=== PATIENT | female | born 1995 | race Caucasian/White ===

== ENCOUNTER → 2017-10-24 16:29 | Outpatient (CLI) | payer MEDICAID, SELFPAY ==
[2017-10-24 21:11] LABS: Chlamydia Trachomatis by PCR Negative (Negative); Neisserai gonorrhoeae by PCR Negative (Negative); Probe Check PASS; Sample Adequacy Control PASS; Specimen Processing Control PASS
== END ==
PROVIDERS: Visit Provider Obstetrics & Gynecology
DX: Z12.4 Encounter for screening for malignant neoplasm of cervix (principal); Z11.3 Encounter for screening for infections with a predominantly sexual mode of transmission; Z34.81 Encounter for supervision of other normal pregnancy, first trimester
CPT/HCPCS: 87491; 87591; 88175; G0145

== ENCOUNTER → 2017-12-05 10:47 | Outpatient (CLI) | payer MEDICAID, SELFPAY ==
[2017-12-05 13:47] LABS: Absolute Lymphocyte Count 1.69 X10^3/ul (0.83-4.51); Absolute Neutrophil Count 5.6 X10^3/uL (2.0-7.7); Basophil# 0.01 X10^3/uL; Basophil% 0.1 % (0-1); Eosinophil# 0.02 X10^3/uL; Eosinophils% 0.3 % (0-5); Lymphocyte # 1.69 X10^3/ul (4.0); Lymphocyte % 22.2 % (19-41); Mean Corp Hgb Conc 33.3 g/gl (32-36); Mean Corpuscular Hgb 29.2 pg (27.0-32.0); Mean Corpuscular Volume 87.6 fL (81-99); Mean Platelet Vol. 10.2 fl (6.2-12.0); Monocyte# 0.28 X10^3/uL; Monocyte% 3.7 % (0-10); Neutrophil # 5.59 X10^3/uL (2.7-7.7); Neutrophil % 73.6 % (47-70); Platelet Count 257 K/mm3 (150-450); RBC Distribution Width CV 12.6 % (11.6-14.6); RBC Distribution Width SD 40.8 fl (35.1-43.9); Red Blood Count 4.11 M/mm3 (4.2-5.4); White Blood Count 7.6 K/mm3 (4.4-11.0)
[2017-12-05 13:48] LABS: POSITIVE COUNT NO; POSITIVE DIFFERENTIAL NO; POSITIVE MORPHOLOGY NO
[2017-12-05 13:54] LABS: Color, Urine Yellow (Yellow); Glucose, Dipstick Normal (Normal); Ketone-Dipstick Negative (Negative); Leukocyte Esterase-Dipstick 100 /ul (Negative); Nitrite-Dipstick Negative (Negative); Occult Blood-Urine 50 /ul (Negative); Protein-Dipstick Negative (Negative); Urine Bilirubin Dipstick Negative (Negative); Urine Clarity Clear (Clear); Urine Urobilinogen Normal (Normal)
[2017-12-05 14:09] LABS: Amphetamine Urine VISTA NEGATIVE (<1000 ng/mL); Barbiturate Urine VISTA NEGATIVE (< 200 ng/mL); Benzodiazepine Urine VISTA NEGATIVE (< 200 ng/mL); Cocaine Urine VISTA NEGATIVE (< 300 ng/mL); Ecstacy Urine VISTA NEGATIVE (< 500 ng/mL); Methadone Urine VISTA NEGATIVE (< 300 ng/mL); PCP Urine VISTA NEGATIVE (< 25 ng/mL); THC Urine VISTA NEGATIVE (< 50 ng/mL); Vista UDS pH Range 5
[2017-12-05 14:15] LABS: Thyroid Stim Hormone (TSH) 1.06 uIU/mL (0.358-3.74)
[2017-12-05 14:54] LABS: HIV - WCH Non-Reactive (Nonreactive)
[2017-12-07 13:51] LABS: HEPATITIS B SURFACE AG Negative (Negative); Hep C Antibodies <0.1 s/co ratio (0.0-0.9); V-Zoster IgG (Immunity) 242 index (Immune >165)
[2017-12-12 05:42] LABS: Prenatal RPR NONREACTIVE (NONREACTIVE)
== END ==
PROVIDERS: Visit Provider Obstetrics & Gynecology
DX: Z34.81 Encounter for supervision of other normal pregnancy, first trimester (principal)
CPT/HCPCS: 36415; 80307; 81002; 84443; 85025; 86703; 86762; 86787; 86803; 87340

== ENCOUNTER 2018-03-15 20:25 | Outpatient (CLI) | payer MEDICAID, SELFPAY ==
[2018-03-15 21:04] VITALS: BMI 38.6
--- NOTE | 2018-03-16 07:29 | OB.TRI.NOTE ---
History of Present Illness Date of Service: 03/15/18 Was patient seen by the physician?: No Reason For Visit: lower abdominal pain at 26 weeks Date of Service: 03/15/18 Final SHAHAB: 06/21/18 Final SHAHAB Source: US <20 weeks Gestational age: 26 Weeks and 1 Days History of Present Illness: C/O lower abdominal pain. Good movement at home. No signs fo SROM no bleeding Allergies No Known Allergies Allergy (Verified 02/15/17 05:05) Physical Exam General: Alert, Oriented x3, Cooperative, No apparent distress Lungs: Clear to auscultation, Normal air movement Abdomen: Soft, Non Tender, Non-Distended, Gravid, Appropriate for Gestational Age Extremities:: No edema Neurological: Neuro grossly intact DIRECTOR REPORT: Normal external genitalia Estimated gestational size: Appropriate for gestational size NST - FHR Rate Baby A Baseline: 140s Variability:: Moderate Accelerations:: 15 x 15 Decelerations:: None NST Reactive:: Yes, Appropriate for gestational age FHR Category:: Category I Uterine Activity:: none Impression/Plan No signs of labor or PPROM. Reassuring heart rate pattern. Reassured and discharged home. Followup in office.
--- NOTE | 2018-03-16 07:32 | OB.TRI.HP_ITS ---
History of Present Illness Date of Service: 03/15/18 Was patient seen by the physician?: No Reason For Visit: lower abdominal pain at 26 weeks Date of Service: 03/15/18 Final SHAHAB: 06/21/18 Final SHAHAB Source: US <20 weeks Gestational age: 26 Weeks and 1 Days History of Present Illness: C/O lower abdominal pain. Good movement at home. No signs fo SROM no bleeding Allergies No Known Allergies Allergy (Verified 02/15/17 05:05) Physical Exam General: Alert, Oriented x3, Cooperative, No apparent distress Lungs: Clear to auscultation, Normal air movement Abdomen: Soft, Non Tender, Non-Distended, Gravid, Appropriate for Gestational Age Extremities:: No edema Neurological: Neuro grossly intact NET MAKER: Normal external genitalia Estimated gestational size: Appropriate for gestational size NST - FHR Rate Baby A Baseline: 140s Variability:: Moderate Accelerations:: 15 x 15 Decelerations:: None NST Reactive:: Yes, Appropriate for gestational age FHR Category:: Category I Uterine Activity:: none Impression/Plan No signs of labor or PPROM. Reassuring heart rate pattern. Reassured and discharged home. Followup in office.
== END 2018-03-15 21:55 | disposition home or self-care (01) ==
LOC: WPOUT 20:37 → WP 20:38
PROVIDERS: Referring Provider Obstetrics & Gynecology; Visit Provider Obstetrics & Gynecology
DX: O26.892 Other specified pregnancy related conditions, second trimester (principal); R10.30 Lower abdominal pain, unspecified; Z3A.26 26 weeks gestation of pregnancy
CPT/HCPCS: 59025; 59050; 99218; G0378

== ENCOUNTER → 2018-03-26 16:31 | Outpatient (CLI) | payer MEDICAID, SELFPAY ==
[2018-03-15 21:04] VITALS: BMI 38.6
[2018-03-26 17:41] LABS: Hematocrit 34.9 % (37-47); Hemoglobin 11.8 g/dl (12.0-15.0); Mean Corp Hgb Conc 33.8 g/gl (32-36); Mean Corpuscular Hgb 30.5 pg (27.0-32.0); Mean Corpuscular Volume 90.2 fL (81-99); Mean Platelet Vol. 10.6 fl (6.2-12.0); Platelet Count 264 K/mm3 (150-450); RBC Distribution Width CV 13.3 % (11.6-14.6); RBC Distribution Width SD 43.1 fl (35.1-43.9); Red Blood Count 3.87 M/mm3 (4.2-5.4); White Blood Count 8.9 K/mm3 (4.4-11.0)
[2018-03-26 17:44] LABS: Scan Indicated on CBC? Y/N NO
[2018-03-26 18:00] LABS: Glucose Challenge Gest 1H 50g 114 mg/dL (70-140)
== END ==
PROVIDERS: Visit Provider Obstetrics & Gynecology
DX: Z34.82 Encounter for supervision of other normal pregnancy, second trimester (principal)
CPT/HCPCS: 36415; 82950; 85027

== ENCOUNTER → 2018-05-25 16:45 | Outpatient (CLI) | payer MEDICAID, SELFPAY | PROVIDERS: Visit Provider Obstetrics & Gynecology | DX: Z36.85 Encounter for antenatal screening for Streptococcus B (principal) | CPT/HCPCS: 87081 ==

== ENCOUNTER 2018-06-12 05:23 | Inpatient (IN) | payer MEDICAID, SELFPAY ==
[2018-06-12 05:56] VITALS: BMI 39.8
[2018-06-12] MEDS: 0.9% Saline Lock 10 ML Syringe IV ×4 (06:05→15:36)
[2018-06-12] MEDS: Lactated Ringers 1,000 ML 50 ML IV (06:48)
[2018-06-12 06:53] LABS: Absolute Lymphocyte Count 2.02 X10^3/ul (0.83-4.51); Absolute Neutrophil Count 7.2 X10^3/uL (2.0-7.7); Basophil# 0.01 X10^3/uL; Basophil% 0.1 % (0-1); Eosinophil# 0.04 X10^3/uL; Eosinophils% 0.4 % (0-5); Hematocrit 35.7 % (37-47); Hemoglobin 11.8 g/dl (12.0-15.0); Lymphocyte # 2.02 X10^3/ul (4.0); Lymphocyte % 20.8 % (19-41); Mean Corp Hgb Conc 33.1 g/gl (32-36); Mean Corpuscular Hgb 29.7 pg (27.0-32.0); Mean Corpuscular Volume 89.9 fL (81-99); Mean Platelet Vol. 10.5 fl (6.2-12.0); Monocyte# 0.41 X10^3/uL; Monocyte% 4.2 % (0-10); Neutrophil # 7.19 X10^3/uL (2.7-7.7); Platelet Count 247 K/mm3 (150-450); RBC Distribution Width CV 13.2 % (11.6-14.6); RBC Distribution Width SD 43.1 fl (35.1-43.9); Red Blood Count 3.97 M/mm3 (4.2-5.4); White Blood Count 9.7 K/mm3 (4.4-11.0)
[2018-06-12 06:55] LABS: POSITIVE COUNT NO; POSITIVE DIFFERENTIAL NO; POSITIVE MORPHOLOGY NO
--- NOTE | 2018-06-12 08:34 | PCM.PN.BLA ---
Progress Note LABOR PROGRESS NOTE discussion Pt in room bouncing on ball and NAD. SROM at 0240 this am clear fluid and states still leaking some. intermittent monitoring and IV to S/L per her plan for NO intervention. States 16 hr labor with her first (not 7 hr as on chart) ... came in at 6 pm, delivered 10 am next day. AVSS EFM intermittent monitoring but category I tracing with intermittent UCs UC on monitor q 6-8 min + Pt now states q 12 + min and not as strong A/P 38 5/7 wk SROM. Inadequate labor. Advised pt that Pitocin is needed as 6+ hr already with no further change, inc in UCs. REFUSES Pitocin at present. States will reconsider in about another hour. Continue observation for now
--- NOTE | 2018-06-12 12:24 | PN_ITS ---
Subjective: Appears comfortable except during contractions. Objective: Afeb VSS intermittent FHR monitoring with normal heart beat - Physical Exam General: Alert, Oriented x3, Cooperative, No apparent distress Abdomen: Soft, Non Tender, Non-Distended, Gravid, Appropriate for Gestational Age Extremities: No edema Neurological: Neuro grossly intact Psych/Mental Status: Normal Affect Comment: CE 5cm 50% Weight: 234 lb Body Mass Index (BMI) 39.8 Intake and Output for Last 24 Hours 06/10/18 06/11/18 06/12/18 23:59 23:59 23:59 Intake Total 1280 / 1280 Output Total 625 / 625 Balance 655 / 655 Laboratory Tests Past 24 Hrs 06/12/18 06/12/18 06:05 06:05 WBC 9.7 RBC 3.97 L Hgb 11.8 L Hct 35.7 L MCV 89.9 MCH 29.7 MCHC 33.1 RDW 13.2 RDW Differential 43.1 Plt Count 247 MPV 10.5 Immature Gran % (Auto) 0.500 Neut % (Auto) 74.0 H Lymph % (Auto) 20.8 [place] % (Auto) 4.2 Eos % (Auto) 0.4 Baso % (Auto) 0.1 Absolute Neuts (auto) 7.2 Absolute Lymphs (auto) 2.02 Total Counted Not Reportable Blood Type AB POSITIVE Antibody Screen NEGATIVE Medical Necessity - Tobacco Use Smoking Status: Light Smoker (<10/day) Assessment/Plan All Active Problems 41 weeks gestation of (Acute) (spontaneous vaginal delivery) (Acute) No change in cervical exam over the last 4 hours. Contractions not frequent enough to affect cervical change. Recommended pitocin augmentation. She will consider.
--- NOTE | 2018-06-12 15:36 | PN_ITS ---
Subjective: Feeling some contractions but not overly uncomfortable Objective: Afeb VSS FHR tracing CAT 1 - Physical Exam Comment: CE 5/80/-3 Weight: 234 lb Body Mass Index (BMI) 39.8 Intake and Output for Last 24 Hours 06/10/18 06/11/18 06/12/18 23:59 23:59 23:59 Intake Total 1540 / 1540 Output Total 1125 / 1125 Balance 415 / 415 Laboratory Tests Past 24 Hrs 06/12/18 06/12/18 06:05 06:05 WBC 9.7 RBC 3.97 L Hgb 11.8 L Hct 35.7 L MCV 89.9 MCH 29.7 MCHC 33.1 RDW 13.2 RDW Differential 43.1 Plt Count 247 MPV 10.5 Immature Gran % (Auto) 0.500 Neut % (Auto) 74.0 H Lymph % (Auto) 20.8 [place] % (Auto) 4.2 Eos % (Auto) 0.4 Baso % (Auto) 0.1 Absolute Neuts (auto) 7.2 Absolute Lymphs (auto) 2.02 Total Counted Not Reportable Blood Type AB POSITIVE Antibody Screen NEGATIVE Medical Necessity - Tobacco Use Smoking Status: Light Smoker (<10/day) Assessment/Plan All Active Problems 41 weeks gestation of (Acute) (spontaneous vaginal delivery) (Acute) No significant change in cervix over last 6 hours. I recommend pitocin augmentation of labor. Reassuring heart rate pattern.
[2018-06-12] MEDS: Oxytocin 30 units/NS 500 ml 30 UNITS/500 ML IV.SOLN IV (15:40)
[2018-06-12] MEDS: Acetaminophen 325 MG Tablet PO (19:44)
--- NOTE | 2018-06-12 19:44 | PCM.PN.OB ---
Subjective: Feeling contractions strongly. Objective: Afeb VSS FHR tracing CAT 1 - Physical Exam Comment: CE /-1 Weight: 234 lb Body Mass Index (BMI) 39.8 Intake and Output for Last 24 Hours 06/10/18 06/11/18 06/12/18 23:59 23:59 23:59 Intake Total 1840 / 1840 Output Total 1475 / 1475 Balance 365 / 365 Laboratory Tests Past 24 Hrs 06/12/18 06/12/18 06:05 06:05 WBC 9.7 RBC 3.97 L Hgb 11.8 L Hct 35.7 L MCV 89.9 MCH 29.7 MCHC 33.1 RDW 13.2 RDW Differential 43.1 Plt Count 247 MPV 10.5 Immature Gran % (Auto) 0.500 Neut % (Auto) 74.0 H Lymph % (Auto) 20.8 [place] % (Auto) 4.2 Eos % (Auto) 0.4 Baso % (Auto) 0.1 Absolute Neuts (auto) 7.2 Absolute Lymphs (auto) 2.02 Total Counted Not Reportable Blood Type AB POSITIVE Antibody Screen NEGATIVE Medical Necessity - Tobacco Use Smoking Status: Light Smoker (<10/day) Assessment/Plan All Active Problems 41 weeks gestation of (Acute) (spontaneous vaginal delivery) (Acute) Progressing in labor expect to start pushing efforts soon.
--- NOTE | 2018-06-12 19:47 | PCM.DCVAG ---
Discharge Diet: No Restrictions Discharge Activity: Return to Normal Activity Additional Instructions: If you experience any of the following, contact your healthcare provider. Bleeding that soaks a pad every hour for 2 hours Fever 100.4 or higher Unrelieved incision or abdominal pain Swelling, redness, discharge or bleeding from your incision or episiotomy site Your incision begins to separate Problems urinating (including inability to urinate or burning while urinating). Visual changes Severe headache Flu-like symptoms Pain or redness in one of both of your breasts Pain, warmth, tenderness or swelling in your legs, especially the calf area Frequent nausea and vomiting Symptoms of depression or anxiety If you experience any of the following, call 911 or go to the nearest Emergency Room. Chest pain Problems breathing Seizure activity Partial or complete paralysis of a body part, slurred speech, weakness or drooping of the face, or a sudden inability to walk or hold your balance Allergies/Adverse Reactions: Allergies No Known Allergies Allergy (Verified 02/15/17 05:05) Medications to take at Discharge Vits [Prenatabs FA ] 1 tablet PO DAILY 02/13/17 Ibuprofen 600 mg PO 4X/DAY #30 tab 06/12/18 The following prescriptions were given: Ibuprofen 600 mg PO 4X/DAY #30 tab Primary Care Physician: Care Physician,No Primary [Primary Care Provider] - Test Results: Test results from this visit will be discussed in further detail at your follow-up appointment, if applicable.
[2018-06-12] MEDS: Oxytocin 30 units/NS 500 ml 30 UNITS/500 ML IV.SOLN 334 UNITS IV (19:57)
--- NOTE | 2018-06-12 20:03 | DCINST_ITS ---
Discharge Diet: No Restrictions Discharge Activity: Return to Normal Activity Additional Instructions: If you experience any of the following, contact your healthcare provider. * Bleeding that soaks a pad every hour for 2 hours * Fever 100.4 or higher * Unrelieved incision or abdominal pain * Swelling, redness, discharge or bleeding from your incision or episiotomy site * Your incision begins to separate * Problems urinating (including inability to urinate or burning while urinating). * Visual changes * Severe headache * Flu-like symptoms * Pain or redness in one of both of your breasts * Pain, warmth, tenderness or swelling in your legs, especially the calf area * Frequent nausea and vomiting * Symptoms of depression or anxiety If you experience any of the following, call 911 or go to the nearest Emergency Room. * Chest pain * Problems breathing * Seizure activity * Partial or complete paralysis of a body part, slurred speech, weakness or drooping of the face, or a sudden inability to walk or hold your balance Allergies/Adverse Reactions: Allergies No Known Allergies Allergy (Verified 02/15/17 05:05) Medications to take at Discharge Vits [Prenatabs FA ] 1 tablet PO DAILY 02/13/17 Ibuprofen 600 mg PO 4X/DAY #30 tab 06/12/18 The following prescriptions were given: Ibuprofen 600 mg PO 4X/DAY #30 tab Primary Care Physician: Care Physician,No Primary [Primary Care Provider] - Test Results: Test results from this visit will be discussed in further detail at your follow- up appointment, if applicable.
--- NOTE | 2018-06-12 20:04 | PCM.OPRPT ---
Vaginal Delivery Maternal Presentation: Spontaneous Rupture of Membranes 38w5d ega with SROM. Method of Induction: Pitocin Amniotic Membrane Rupture Type: Spontaneous at home Rupture of Membrane time: 0200 Amniotic Fluid Description: Clear Final SHAHAB: 06/21/18 Final SHAHAB Source: US <20 weeks Gestational age: 38 Weeks and 5 Days Date of Procedure: 06/12/18 Pre-Operative Diagnosis: labor Post-Operative Diagnosis: same Surgery/ Procedure Performed: Spontaneous Vaginal Delivery Type of Anesthesia: None Description of Procedure: Pitocin augmentation of labor was started at about 4pm. She then progressed over 4 hour to FD then pushed over one contraction to deliver a live male without complication. There was a loose nuchal cord x 2 which was reduced at delivery. After delivery the mouth and nose were suctioned with a bulb suction. Delayed cord clamping was employed. The cord was then clamped and cut. The placenta delivered spontenously intact. The uterus contracted well. Inspection revealed an intact vagina and perineum. Presentation: Vertex Placental Delivery Description: Spontaneous Placenta Disposition: [facility] Percentage of Placenta Abruption: 0 Cord Vessel Description: 3 Vessels Nuchal Cord Compression: Without compression Cord Entanglement: Around neck x 2, loose Estimated Blood Loss: 200cc Infant A gender: Male (1 minute): 8 (5 minute): 9 Episiotomy Description: None Laceration: None Medications given after delivery: IV Pitocin Complications: None
[2018-06-12] MEDS: Oxytocin 30 units/NS 500 ml 30 UNITS/500 ML IV.SOLN 167 UNITS IV (20:27)
[2018-06-13] VITALS: BP 108/62; PULSE 79; RESP 18; TEMP 36.7; O2SAT 98
[2018-06-13] MEDS: Senna/Docusate Sodium 1 Tablet PO (04:14)
[2018-06-13] MEDS: Ibuprofen 600 MG Tablet PO (04:15)
[2018-06-13 04:23] VITALS: BP 110/64; PULSE 80; RESP 16; TEMP 36.6
[2018-06-13 06:32] LABS: Hematocrit 33.7 % (37-47); Hemoglobin 11.1 g/dl (12.0-15.0); Mean Corp Hgb Conc 32.9 g/gl (32-36); Mean Corpuscular Hgb 29.9 pg (27.0-32.0); Mean Corpuscular Volume 90.8 fL (81-99); Mean Platelet Vol. 10.5 fl (6.2-12.0); Platelet Count 233 K/mm3 (150-450); RBC Distribution Width CV 13.3 % (11.6-14.6); RBC Distribution Width SD 43.4 fl (35.1-43.9); Red Blood Count 3.71 M/mm3 (4.2-5.4); White Blood Count 10.5 K/mm3 (4.4-11.0)
[2018-06-13 06:34] LABS: Scan Indicated on CBC? Y/N NO
[2018-06-13 08:00] VITALS: BP 101/77; PULSE 77; RESP 14; TEMP 36.3
--- NOTE | 2018-06-13 08:24 | PCM.PN.OB ---
Subjective: No complaints. Bleeding light Objective: Afeb VSS Hgb stable - Physical Exam General: Alert, Oriented x3, Cooperative, No apparent distress Lungs: Clear to auscultation, Normal air movement Cardiovascular: Regular rate, Regular Rhythm Abdomen: Soft, Non Tender, Non-Distended, - - Fundus nontender Extremities: No edema Neurological: Neuro grossly intact Psych/Mental Status: Normal Affect Comment: Lochia light Vital Signs Temp Pulse Resp BP Pulse Ox 97.8 F 80 16 110/64 98 06/13/18 04:23 06/13/18 04:23 06/13/18 04:23 06/13/18 04:23 06/13/18 00:00 Oxygen Delivery Method Room Air Weight: 234 lb Body Mass Index (BMI) 39.8 Intake and Output for Last 24 Hours 06/11/18 06/12/18 06/13/18 23:59 23:59 23:59 Intake Total 1840 / 1840 Output Total 1475 / 1475 Balance 365 / 365 Laboratory Tests Past 24 Hrs 06/12/18 06/13/18 06:05 06:15 WBC 10.5 RBC 3.71 L Hgb 11.1 L Hct 33.7 L MCV 90.8 MCH 29.9 MCHC 32.9 RDW 13.3 RDW Differential 43.4 Plt Count 233 MPV 10.5 Blood Type AB POSITIVE Antibody Screen NEGATIVE Medical Necessity - Tobacco Use Smoking Status: Light Smoker (<10/day) Assessment/Plan All Active Problems 41 weeks gestation of (Acute) (spontaneous vaginal delivery) (Acute) Doing well on PP day#1. May wish discharge home today. OK for discharge if baby discharged home. Home going instructions and warnings given.
--- NOTE | 2018-06-13 08:26 | PCM.DC.SUM ---
Discharge Date and Diagnosis Date of Admission: 06/12/18 Date of Discharge: 06/13/18 - Primary Discharge Diagnosis S/P Hospital Course and Treatment Consultations 06/12/18 05:56 Consult: Anesthesia Routine Comment: Reason For Exam: LABOR Operations: None Procedures: - - Summary of Care Provided: The patient is a 22 year old F [admitted with SROM at term. Progressed with pitocin augmentation to FD then pushed to deliver a live male without complication. PP course unremarkable. Discharged home on PP day#1.] - Physical Exam Vital Signs Temp Pulse Resp BP Pulse Ox 97.8 F 80 16 110/64 98 06/13/18 04:23 06/13/18 04:23 06/13/18 04:23 06/13/18 04:23 06/13/18 00:00 Oxygen Delivery Method Room Air Weight: 234 lb Body Mass Index (BMI) 39.8 Intake and Output for Last 24 Hours 06/11/18 06/12/18 06/13/18 23:59 23:59 23:59 Intake Total 1840 / 1840 Output Total 1475 / 1475 Balance 365 / 365 Laboratory Tests Past 24 Hrs 06/12/18 06/13/18 06:05 06:15 WBC 10.5 RBC 3.71 L Hgb 11.1 L Hct 33.7 L MCV 90.8 MCH 29.9 MCHC 32.9 RDW 13.3 RDW Differential 43.4 Plt Count 233 MPV 10.5 Blood Type AB POSITIVE Antibody Screen NEGATIVE Discharge Diet: No Restrictions Discharge Activity: Return to Normal Activity Return to work on:: 08/03/18 May resume sexual activity in: 4-6 weeks Call your doctor if your incision/area has: Sudden Increased Bleeding, Foul Smelling Discharge Call your doctor if you observe: Fever of 101 or Higher, Inability to urinate, Inability to have a bowel movement, Using more than one pad per hour, Shortness of breath, Chest pain, Calf discomfort, Uncontrolled pain Cleanse incision/area with: Soap & Water Home Medications: Medications to take at Discharge Vits [Prenatabs FA ] 1 tablet PO DAILY 02/13/17 Ibuprofen 600 mg PO 4X/DAY #30 tab 06/12/18 Following Prescrptions Were Given to Patient: Ibuprofen 600 mg PO 4X/DAY #30 tab Primary Care Physician: Care Physician,No Primary [Primary Care Provider] - Please Follow Up With: Kishan Ellis MD When: 6 weeks Disposition: Home Minutes spent on discharge:: 15 Patient Condition:: Good Medical Necessity - Tobacco Use Smoking Status: Light Smoker (<10/day) Meaningful Use Info Meaningful Use Diagnoses (Choose all that apply): None applicable
[2018-06-13 11:59] VITALS: BP 123/72; PULSE 79; RESP 14; TEMP 36.2
[2018-06-13 15:59] VITALS: BP 118/72; PULSE 75; RESP 14; TEMP 36.8
[2018-06-13] MEDS: Acetaminophen 500 MG Tablet 1000 MG PO (16:16)
[2018-06-13 20:50] VITALS: BP 122/81; PULSE 81; RESP 18; TEMP 36.5; O2SAT 96
== END 2018-06-13 21:30 | disposition home or self-care (01) | DRG 560 ==
PROVIDERS: Obstetrics & Gynecology; Admitting Provider Obstetrics & Gynecology; Visit Provider Obstetrics & Gynecology
DX: O69.81X0 Labor and delivery complicated by cord around neck, without compression, not applicable or unspecified (principal); O99.334 Smoking (tobacco) complicating childbirth; Z3A.38 38 weeks gestation of pregnancy; Z37.0 Single live birth
CPT/HCPCS: 59025; 59050; 85025; 85027; 86850; 86900; 99218; J7120; A4216; G0378

== ENCOUNTER → 2018-08-21 | Outpatient (CLI) | payer MEDICAID, SELFPAY ==
--- NOTE | 2018-08-20 | IMM_PTH ---
PATIENT: BRINA ARORA LOC: [facility] U#:[id number] AGE/SX: 22/F ROOM: RE08/21/[address]: Dr. Kishan Ellis MD : 1995 BED: DIS: 08/21/2018 SPEC #: [id number] RECD: 08/24/18 13:51 STATUS: KWESI REQ #: [id number] NALDO: 08/20/18 00:[address]: Kishan Ellis DEPT: IMMUNOHISTOCHEMISTRY RECD BY: Rosendo Morejon ENTERED: 08/24/18 13:53 SP TYPE: IMMUNO OH DR: No Primary Care Phys Tissues: Uterine cervix, NOS Procedures: p16 (initial) PHYSICIAN & INSTITUTION [place] [id number] SPECIMEN INFORMATION: Tissue Source: A - Cervical biopsy, four-quad Clinical Info: LGSIL Specimen Number: [id number] CPT code: 55671 METHODOLOGY: Deparaffinized sections of prefer/formalin-fixed tissue or PAP/DQ stained slides are incubated with monoclonal/polyclonal antibodies/oligonucleotide probes. Localization is made via biotin free immunoperoxidase method. Appropriate controls are performed and reacted as expected. Results on target cell population are indicated in the following table: RESULTS: ANTIBODY / CLONE RESULT Block A P16 (E6H4) focally positive These tests were developed and their performance characteristics determined by [facility]. They may not have been cleared or approved by the [place]. Food and Drug Administration. The FDA has determined that such clearance or approval is not necessary. INTERPRETATION: A. Cervical biopsy: Mild to moderate dysplasia, LISSETT I-II FA:juan antonio 08/25/18 Case has been reviewed in consultation with Dr. Hurtado who concurs with the above diagnosis. IDC:CE
--- NOTE | 2018-08-20 16:30 | CER_PTH ---
PATIENT: BRINA ARORA LOC: [facility] U#:[id number] AGE/SX: ROOM: RE08/21/[address]: Dr. Kishan Ellis MD : 1995 BED: DIS: 08/21/2018 SPEC #: [id number] RECD: 08/21/18 10:46 STATUS: KWESI HEATHER #: [id number] NALDO: 08/20/18 16:[address]: Kishan Ellis DEPT: SURGICAL PATHOLOGY RECD BY: Wes Rosado ENTERED: 08/21/18 11:19 SP TYPE: CERV OTHR DR: No Primary Care Phys Tissues: A - Uterine cervix, NOS B - Uterine cervix, NOS Procedures: Surgery Specimen Level IV HEADER OPERATION: Colposcopy PRE-OP DIAGNOSIS: LGSIL TISSUE SUBMITTED: A - Cervical biopsy four-quad, B - ECC MICROSCOPIC DIAGNOSIS A. Cervical biopsy: Mild to focally moderate cervical dysplasia (LISSETT I-II). 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 See comment. B. Endocervical curettings: Scanty minute strips of endocervical epithelium with squamous metaplasia in the background of mucus material. FA:juan antonio 08/24/18 COMMENT A. The results of immunohistochemical staining (with appropriate controls) for P16 show focal positivity, supporting above diagnosis ([id number]). Case has been reviewed in consultation with Dr. Jose Hurtado MD who concurs with the above diagnosis. IDC:CE MICROSCOPIC DESCRIPTION Slides are reviewed. GROSS DESCRIPTION A - Received in fixative is one container labeled with the patient's name and designated cervical biopsy. The specimen consists of three irregular fragments of reddish-shabazz soft tissue that in aggregate measure 0.5 x 0.4 x 0.2 cm. The specimen is totally submitted in one cassette. B - Received in fixative is one container labeled with the patient's name and designated ECC. The specimen consists of two reddish-brown fragments of clotted blood and scant shabazz fragments of soft tissue that in aggregate measure 0.5 x 0.5 x 0.3 cm. The specimen is totally submitted in one cassette. / CE:juan antonio 08/21/18 TC: CPT: 15671 x2
[2018-08-28 11:25] LABS: HPV APTIMA, High Risk Positive (Negative)
== END | disposition home or self-care (01) ==
LOC: LABSPEC 11:08
PROVIDERS: Referring Provider Obstetrics & Gynecology; Visit Provider Obstetrics & Gynecology
DX: R87.612 Low grade squamous intraepithelial lesion on cytologic smear of cervix (LGSIL) (principal)
CPT/HCPCS: 88175; 88305; 88342; G0145

== ENCOUNTER 2021-12-16 16:40 | Emergency (ER) | payer BC, SELFPAY ==
[2021-12-16 16:41] VITALS: BP 122/77; PULSE 74; RESP 14; TEMP 35.5; O2SAT 98; BMI 33.3
--- NOTE | 2021-12-16 17:00 | EX.ED.GENINJ ---
HPI <HANNAH Dunham - Last Filed: 12/16/21 17:26> History of Present Illness Chief Complaint: Laceration Narrative Narrative: Prior to arrival patient was using a kitchen knife to open a box and accidentally cut her left calf. There is no bleeding. Last tetanus unknown. PFSH <HANNAH Dunham - Last Filed: 12/16/21 17:26> [facility] Home Medications vits,calcium no.78-iron fumarate-folic acid 29 mg-1 mg tablet (Prenatabs FA) 1 tab PO DAILY 02/13/17 [History Last Taken 03/15/18] ibuprofen 600 mg tablet 600 mg PO 4X/DAY pain or cramping\ #30 tabs 06/12/18 [Rx Last Taken Unknown] Allergy/AdvReac Type Severity Reaction Status Date / Time No Known Allergies Allergy Verified 02/15/17 05:05 Social History (Updated 01/16/18 @ 16:13 by John YOUNG PA) Smoking Status: Light Smoker (<10/day) ROS <HANNAH Dunham - Last Filed: 12/16/21 17:26> ROS ED ROS Narrative Constitutional: Negative for fever, chills, malaise. Eyes: Negative for visual change. ENT: Negative for sore throat, rhinorrhea. CVS: Negative for chest pain, syncope. Respiratory: Negative for shortness of breath. GI: Negative for abdominal pain, nausea, vomiting. : Negative for dysuria, hematuria or frequency. Neuro: Negative for headache, motor/sensory dysfunction. Skin: Positive for laceration. Musc: Negative for joint pain, swelling, trauma. Heme: Negative for easy bruising, bleeding, lymphadenopathy. EXAM <HANNAH Dunham - Last Filed: 12/16/21 17:26> Physical Exam Narrative Exam Narrative: CONST: Patient sitting in no acute distress. EYES: Normal inspection. NECK: Normal inspection. RESP: No respiratory distress, CTAB. CVS: Regular rate and rhythm, no murmur, no gallop. SKIN: 2 cm linear laceration left medial calf. EXTREMITIES: Normal appearance, 2+ PT pulses. NEURO: Oriented x4. PSYCH: Normal affect. Const Vital Signs: 12/16/21 16:41 Temperature 96 F L Temperature Source Temporal Pulse Rate 74 Respiratory Rate 14 Blood Pressure 122/77 H Blood Pressure Mean 92 Pulse Ox 98 Oxygen Delivery Method Room Air <Dr. Bipin Le MD - Last Filed: 12/16/21 17:38> Physical Exam Const Vital Signs: 12/16/21 16:41 Temperature 96 F L Temperature Source Temporal Pulse Rate 74 Respiratory Rate 14 Blood Pressure 122/77 H Blood Pressure Mean 92 Pulse Ox 98 Oxygen Delivery Method Room Air <Dr. Bipin Le MD - Last Filed: 12/16/21 17:38> Procedures Lacerations L calf: Length: 2 cm Depth: Sub Q Shape: Linear Prep: Sterile Conditions and Chlorhexadine Laceration repair: Lidocaine (2cc, plain 1%) and Local Number of Sutures/[place]: 3 Suture Information: Ethilon, Simple and 4-0 MDM <HANNAH Dunham - Last Filed: 12/16/21 17:26> MDM MDM Narrative Medical decision making narrative: Patient has a 2 cm left calf laceration. Extremities neurovascularly intact. I anesthetized the area with 2 cc of 1% lidocaine and thoroughly irrigated with sterile saline. It was prepped and draped in sterile condition and closed with 3 simple directed sutures of 4-0 Ethilon. We discussed wound care and suture removal in 8 to 10 days. Return for signs of infection. Patient refused a tetanus update and was discharged in stable condition. <Dr. Bipin Le MD - Last Filed: 12/16/21 17:38> [facility] Treatment and Re-Evaluation Narrative: Seen and evaluated independently and in conjunction with physician information technology assistant. Agree with notes above unless documented otherwise. Accidental laceration with left calf while using a kitchen knife to open the package. Exam: Clean linear 2 cm laceration. Repaired by HANNAH. Given appropriate discharge instructions, dressed bacitracin. Neurovascular intact distally before and after repair. Discharge Plan Triage Chief Complaint: Laceration ED Midlevel Provider: Judie Roth ED Provider: Bipin Le Dx/Rx/DC Orders Clinical Impression: Laceration of left leg Instructions: ED Laceration Extremity Prescriptions: No Action vit,[id number] [Prenatabs FA] 1 TABLET tablet 1 tab PO DAILY ibuprofen 600 MG tablet 600 mg PO 4X/DAY Qty: 30 1RF Primary Care Provider: Care Physician,No Primary Referrals: Care Physician,No Primary [Primary Care Provider] - Doctor,Your [Non-Staff] - 10 Day for suture removal (or ER/urgent care) Activity Restrictions/Additional Instructions: You can shower as normal and gently clean the area with soap and water. Stitches need removed in 8 to 10 days. If any signs of infection like redness swelling or drainage or pus develop come back to the ER immediately. Disposition Disposition: Home, Self Care
[2021-12-16] MEDS: Lidocaine 1% (20 ml mdv) 20 ML Vial INFILT (17:43)
== END 2021-12-16 17:43 | disposition home or self-care (01) ==
PROVIDERS: Emergency Provider Emergency Medicine; Visit Provider Emergency Medicine
DX: S81.812A Laceration without foreign body, left lower leg, initial encounter (principal); F17.200 Nicotine dependence, unspecified, uncomplicated; W26.0XXA Contact with knife, initial encounter
CPT/HCPCS: 12001; 99283